=== PATIENT | male | born 1960 | race Caucasian/White ===

== ENCOUNTER 2019-09-06 03:58 | Emergency (ER) | payer OTHER ==
[~2019-09-06] VITALS: Ht 188 cm; Wt 90.7 kg
[~2019-09-06 03:58] MED LIST: ABILIFY20 MG PO; ACTOS 45 MG45 M1 PO; ACTOS 45 MG45 M2 PO; AVANDIA8 MG PO; COLACE100 MG; DILANTIN100 MG PO; GEODON PO; GEODON20 MG PO; GEODON40 MG PO; GEODON80 MG PO; GUIATUSS100 MG/5 M; IBUPROFEN 800800 M1 PO; JANUVIA100 MG PO; JANUVIA50 MG PO; KEPPRA 500 MG500 M1 PO; METFORMIN 500500 MG PO; MI-ACID80 MG; MOM; MULTIVITAMINS1 EAC7 PO; NORCO 5-325 TA1 EACH PO; PENICILLIN V P500 MG PO; PEPTO-BISM262 MG/15; PEROXICAM PO; SUDAFED 12 HOU120 MG; TRAMADOL 50 MG50 MG PO; TUMS PO; ULTRAM 50MG TAB50 MG PO; VIAGRA50 MG PO; ZETIA10 MG PO
[2019-09-06] MEDS ORDERED: GLIPIZIDE 10 MG10 MG PO (04:16)
[2019-09-06 04:26] LABS: ABSOLUTE NEUTROPHILS 4.1 thou/uL (1.4-8.2); BASOPHILS 0.4 % (0.0-2.0); HEMATOCRIT 37.3 % (42.0-52.0); HEMOGLOBIN 12.6 gm/dL (14.0-18.0); LYMPHOCYTES 14.6 % (24.0-44.0); MCH 31.7 pg (26.0-34.0); MCHC 33.8 g/dL (28.0-37.0); MCV 93.9 fL (80.0-100.0); MONOCYTES 10.5 % (1.0-8.0); PLATELET COUNT 233 thou/uL (150-400); POLYS 74.5 % (36.0-66.0); RBC 3.97 mil/uL (4.50-6.00); RDW 13.4 % (10.5-14.5); WBC 5.5 thou/uL (4.0-11.0)
[2019-09-06 04:33] LABS: ANION GAP 11 mmol/L (7-16); BUN 20 mg/dL (7-18); CALCIUM 9.2 mg/dL (8.5-10.1); CHLORIDE 102 mmol/L (98-107); CO2 24 mmol/L (21-32); CREATININE 0.9 mg/dL (0.7-1.3); GLUCOSE 162 mg/dL (74-106); POTASSIUM 3.4 mmol/L (3.5-5.1); SODIUM 137 mmol/L (136-145)
[2019-09-06 04:41] LABS: TROPONIN-I <0.06 ng/mL (<0.06)
[2019-09-06 04:55] LABS: AMP/METHAMP Negative (Negative); BARBITURATES Negative (Negative); BENZODIAZEPINES Negative (Negative); COCAINE Negative (Negative); METHADONE Negative (Negative); OPIATES Negative (Negative); PCP Negative (Negative)
[2019-09-06 08:16] VITALS: BP 146/75
--- NOTE | 2019-09-07 07:54 | EKG ---
[place] [address] [facility] [place] [address] ELECTROCARDIOGRAM REPORT Name: ANT RACIEL Room #: DEP [facility]#: [id number] Admission: 09/06/19 Attend Phys: Discharge: 09/06/19 Date of : 58 Report #: [id number] THIS REPORT FOR: //name// [facility] ED Test Date: 2019-09-06 Test Time: 04:12:08 Pat Name: ANT JASSO Department: Room: Gender: Automatic Transmission Mechanic: BRENDA : 1960 Requested By: Elva Mathur Order Number: [id number] MD: Can Castro Measurements Intervals Belt Rate: 91 P: 45 DE: 190 QRS: 29 QRSD: 78 T: 57 QT: 439 QTc: 541 Interpretive Statements Sinus rhythm Nonspecific ST and T wave abnormality Compared to ECG 02/24/2014 12:05:23 Nons[address] change in the ST and T-wave segments Electronically Signed On 09-07-2019 7:54:21 ASSEMBLER WATCH TRAIN by Can Castro [email or web address] <ELECTRONICALLY SIGNED> By: Can Castro MD, [facility] 09/07/19 0754 0412 041 Can Castro MD, [facility] /EPI
[2019-09-07] MEDS ORDERED: COLACE100 MG PO (19:45)
[2019-09-07] MEDS ORDERED: IBUPROFEN 800800 M1 PO (19:45)
== END 2019-09-06 08:42 | disposition home or self-care (01) ==
LOC: ER 03:58
PROVIDERS: Emergency Medicine
DX: F29 Unspecified psychosis not due to a substance or known physiological condition (principal); R07.9 Chest pain, unspecified; E11.9 Type 2 diabetes mellitus without complications; M19.90 Unspecified osteoarthritis, unspecified site; F31.9 Bipolar disorder, unspecified; Z87.891 Personal history of nicotine dependence; Z88.8 Allergy status to other drugs, medicaments and biological substances

== ENCOUNTER 2019-09-07 16:10 | Inpatient (IN) | payer OTHER ==
[~2019-09-07] VITALS: Ht 188 cm; Wt 84.4 kg
[~2019-09-07 16:10] MED LIST changes: +GLIPIZIDE 10 MG10 MG PO
[2019-09-07 16:11] VITALS: BP 131/61
[2019-09-07 17:01] LABS: HEMOGLOBIN 12.4 gm/dL (14.0-18.0); MCH 31.6 pg (26.0-34.0); MCHC 33.5 g/dL (28.0-37.0); MCV 94.2 fL (80.0-100.0); PLATELET COUNT 210 thou/uL (150-400); RBC 3.93 mil/uL (4.50-6.00); RDW 13.1 % (10.5-14.5); WBC 13.6 thou/uL (4.0-11.0)
[2019-09-07 17:06] LABS: CALCIUM 9.5 mg/dL (8.5-10.1); CREATININE 1.3 mg/dL (0.7-1.3); POTASSIUM 3.4 mmol/L (3.5-5.1)
[2019-09-07 17:12] LABS: ALBUMIN 3.8 g/dL (3.4-5.0); TOTAL BILIRUBIN 1.2 mg/dL (<0.1-1.0); TOTAL PROTEIN 7.3 g/dL (6.4-8.2)
[2019-09-07 17:47] LABS: ABSOLUTE NEUTROPHILS 10.1 thou/uL (1.4-8.2)
[2019-09-07 18:42] LABS: URINE BILIRUBIN NEGATIVE (Negative); URINE BLOOD 1+ (Negative); URINE CLARITY CLEAR; URINE COLOR YELLOW; URINE GLUCOSE-RANDOM* TRACE (Negative); URINE KETONES 1+ (Negative); URINE LEUKOCYTES-REFLEX NEGATIVE (Negative); URINE NITRITE-REFLEX NEGATIVE (Negative); URINE PROTEIN (DIPSTICK) NEGATIVE (Negative); URINE UROBILINOGEN 0.2 E.U./dl (0.2-1.0)
[2019-09-07 18:50] LABS: BACTERIA-REFLEX None Seen /HPF (None Seen); CASTS None Seen /LPF (None Seen); CRYSTALS None Seen /LPF (None Seen); MUCUS None Seen strn/LPF (None Seen); SQUAMOUS 0-3 Few /LPF (0-3); URINE RBC 0-2 Rare /HPF (0-2); URINE WBC-REFLEX None Seen /HPF (0-5)
[2019-09-07] MEDS ORDERED: COLACE100 MG PO (19:45)
[2019-09-07] MEDS ORDERED: IBUPROFEN 800800 M1 PO (19:45)
[2019-09-07 21:29] VITALS: BP 130/65
[2019-09-07 21:52] VITALS: BP 130/65
[2019-09-07 22:28] VITALS: BP 135/61
--- NOTE | 2019-09-08 03:04 | NUR ---
PATIENT ARRIVED FROM ED AT APPROX. 2230. PATIENT IS BEING ADMITTED FOR SIEZURE ACTIVITY EARLIER TODAY. 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 PATIENT IS ALERT AND ORIENTED TO HIMSELF AND TIME. PATIENT SEEMS CONFUSED TO WHERE HE IS AND WHY HE IS HERE. PATIENT SPEAKS IN SHORT SENTENCES AND SEEMS TO SLUR HIS WORDS. VITAL SIGNS APPEAR STABLE. ASSESSMENT IS CHARTED WITH ASSIST FROM LUIS Ho RN. PATIENTS PM MEDS ARE BEING STARTED IN AM A PRECAUTION BECAUSE OF HIS SIEZURE ACTIVITY EARLIER TODAY. PATIENT USED URINAL X1 THIS SHIFT BUT GOT OUT OF BED LATER BECAUSE HE HAD TO USE THE TOILET. PATIENT PULLED HIS IV IN WRIST OUT AND THIS NURSE STARTED A NEW 22G SL IV ON HIS R FOREARM. PATIENT IS VOICING PARANOID THOUGHTS. PATIENT WAS REASURRED WE WILL MONITOR HIM TONIGHT. GRADY Hoover NP EXAMINED HIM AND WE WILL PROCEED W PLAN OF CARE. FALL PRECAUTIONS IN PLACE. PATIENT IS PLACED CLOSE TO NURSES STATION, BED ALARM IS ON. NO SIEZURE ACTIVITY OCCURED. WILL CONTINUE TO MONITOR AND FOLLOW POC
--- NOTE | 2019-09-08 08:20 | NUR ---
SPOKE TO INTERIOR ASSEMBLIES DEVELOPER PROVER JAYE AT 0820 AND HE STATES "HE SHOULD BE ON 60MG OF GEODON AT MOST" AND STATES "HE HAS BEEN TAKING MEDICATION FOR ERECTILE DYSFUNCTION"; BRAND UNKNOWN. INTERIOR ASSEMBLIES DEVELOPER PROVER ALSO STATED RECENT DISORIENTATION. WILL REQUEST A PSYCH CONSULT
[2019-09-08 09:09] LABS: HEMATOCRIT 34.8 % (42.0-52.0); HEMOGLOBIN 12.1 gm/dL (14.0-18.0); MCH 32.5 pg (26.0-34.0); MCHC 34.7 g/dL (28.0-37.0); MCV 93.6 fL (80.0-100.0); PLATELET COUNT 181 thou/uL (150-400); RBC 3.72 mil/uL (4.50-6.00); RDW 12.9 % (10.5-14.5); WBC 10.2 thou/uL (4.0-11.0)
[2019-09-08 09:17] LABS: CALCIUM 8.8 mg/dL (8.5-10.1); CREATININE 0.8 mg/dL (0.7-1.3); POTASSIUM 3.2 mmol/L (3.5-5.1)
[2019-09-08 10:33] LABS: ABSOLUTE NEUTROPHILS 8.4 thou/uL (1.4-8.2); PLATELET ESTIMATE NORMAL
[2019-09-08 14:20] VITALS: BP 143/62
--- NOTE | 2019-09-08 16:03 | NUR ---
PT ADMITTED RELATED TO RECURRENT SIZURE ACTIVITY. CM REVIEWED CHART AND SPOKE WITH CARE TEAM. CM ATTEMPTED TO VISIT WITH PT AT BEDSIDE THIS DAY BUT PT WAS SLEEPING AND DIDM'T ROUSE. CM CALLED JAYE MATIAS WHO IS LISTED PT'S GUARDIAN IN OUR SYSTEM, HE ISN'T HE IS PT'S REDISCOVER ABLE SEAMAN . HE INDICATED THAT PT RESIDES IN AN INDEPENDENT APARTMENT AT [facility]. 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 HE INDICATED THAT PT HADN'T USED ANY DME. JAYE FLORENCIO INDICATED THAT PT'S MOM LIVES IN [place] AND THAT HE COMMUNICATES WITH HER REGARDING PT REGULARLY. HE INDICATED HE PLANS THAT PT WILL WANT TO RETURN HOME ONCE MEDICALLY STABLE. CM TO FOLLOW INDICATED WITH DC PLANNING.
--- NOTE | 2019-09-08 16:08 | NUR ---
CONSULT [phone] COMPLETED BY THIS DICTAPHONE TECHNICIAN. PATIENT WAS RECEIVING WHAT APPEARED TO BE "EEG" TEST ON FIRST ATTEMTED VISIT. THIS DICTAPHONE TECHNICIAN WAS ABLE TO VISIT WITH THE PATIENT ON THE SECOND VISIT. PATIENT HAD A VERY FLAT AFFECT AND HIS RESPONSES SEEMED DELAYED. BASIC LIFE REVIEW WAS ATTEMPTED. PATIENT WAS ABLE TO SHARE THAT HE ATTENDED A TEMPLE RASTAFARIAN WHEN HE WAS LITTLE, BUT DID NOT PROFESS THAT TO BE HIS CURRENT AL. PATIENT SEEMED UNCERTAIN ABOUT FAMILY BUT STATED THEY WERE AT"COMMON GROUND". WE CONCLUDED IN PRAYER. THIS DICTAPHONE TECHNICIAN SPOKE TO THE PATIENT'S NURSE TO SEE IF SHE HAD NOTICED ANY VISITORS OR IF SHE WAS AWARE OF ANY FAMILY CONTACTS. SHE INDICATED SHE THOUGHT SIENNA WAS A CAREGIVER.
--- NOTE | 2019-09-08 19:23 | NUR ---
RECEIVED PT'S CARE AROUND 0710; PT. ON BED; DURING ASSESSMENT ALERT TO PERSON & PLACE; C/O BACK PAIN; REFUSED PRN PAIN MEDICATION; AM MEDICATIONS GIVEN; CALM; COOPERATIVE; SEIZURE PRECAUTIONS ON PLACE; EDUCATED ABOUT FALL PRECAUTIONS; CALL BEFORE STANDING FROM BED; ST. UNDERSTANDING; INSULIN NOT REPLACED DUE TO SLEEPING; NOT ABLE TO MANTAIN EYES OPEN FOR LONG TO EAT; EAT BREAKFAST & DINNER 100%; ABLE TO AMBULATE TO RESTHROOM WITH ONE PERSON ASSISSTANCE & GAIT PARKS; ASSESSMENT CHARGED; FOLLOWING POC; PASSED ON REPORT;
[2019-09-08 19:30] VITALS: BP 144/68
--- NOTE | 2019-09-09 05:33 | NUR ---
PATIENT ALERT AND ORIENTED TO PERSON AND PLACE ONLY. CONFUSED AND FORGETFUL. ASKS THE SAME QUESTIONS OVER AND OVER. PATIENT ANXIOUS AND PARANOID. THOUGHT WE WERE GIVING HIM TOO MUCH POTASSIUM AND WE DID NOT HAVE HIS CORRECT CLIFF ON THE WHITE BOARD. WORRIED ABOUT HIS OTHER MEDS. DENIES PAIN. SLEPT OFF AND ON DURING THE NIGHT.
[2019-09-09 07:32] VITALS: BP 146/69
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
--- NOTE | 2019-09-09 14:01 | NUR ---
CM VISITED WITH PT THIS AM AND HE INDICATED THAT HE HAD A NUMBER OF ITEMS HE WANTED SECURITY TO COLLECT FOR SAFE KEEPING. CM NOTIFIED SECURITY AND THEY COLLECTED KEYS, WALLET, AND SOME MACE. CM FOLLOWED UP WITH PT'S SPRINKLING SYSTEM IRRIGATOR JAYE MATIAS HE HAD VISITED PT THIS AM. HE INDICATED THAT PT ISN'T AT HIS BASELINE COGNITIVELY. PT ASSESSED AND THEY INDICATED THAT ONGOING ASSESSMENT IS NEEDED. WE ARE AWAITING DR. LIZ TO ASSESS WELL. CM TO FOLLOW INDICATED WITH DC PLANNING.
--- NOTE | 2019-09-09 14:17 | NUR ---
THIS CULINARY ARTS INSTRUCTOR OBSERVED A SIGNIFICANT INCREASE IN HIS LEVEL OF COMMUICATION AND MUCH MORE COHERENT. HE WOULD "DRIFT OFF" OCCASIONALLY HE SPOKE, BUT WITH A LITTLE VERBAL PROMPTING HE WOULD REGAIN HIS THOUGHT PATTERN. WE DISCUSSED HIM GROWING UP IN A PRESYBETERIAN HOME. HE LOOKED AT ME AND ASKED ME "ARE YOU A PRESYBETERIAN?" HE WENT ON TO EXPLAIN THAT HE IS NOW "REGULAR VOODOO". HE SAID THAT IF HIS GIRLFRIEND WOULD CHANGE HER DENOMINATON, HE WOULD HER. i ASKED HIM ABOUT HIS RINGS. HE GOT A LITTLE "TOUNGE TWISTED" BUT EXPLAINED THAT "THEY ARE WEDDING BANDS THAT HE PURCHASED IN THE [facility]. HE ASKED IF I WOUD PRAY FOR HIM. I ASKED IF THERE WAS ANYTHING IN PARTICLUAR. HE WENT AHEAD AND STARTED PRAYING A PRETTY MUCH APPROPRIATE PRAYER. I CONCLUDED . HE SHOOK MY HAND AND THANKED ME FOR VISITING HIM.
[2019-09-09 14:34] LABS: TSH 0.984 uIU/mL (0.358-3.740)
[2019-09-09 15:10] VITALS: BP 134/60
[2019-09-09 19:22] VITALS: BP 160/82
--- NOTE | 2019-09-10 03:10 | NUR ---
PT CARE ASSUMED WITH PT IN BED.PT REFUSED TO TAKE BEDTIME MEDICATION.PT BECAME AGITATED DURING THE NIGHT AND HIGHWAY COMMISSIONER MUNIRA INFORMED AND ORDERED GEODON IM ONETIME .MEDICATION ADMINISTERED AND PATIENT WENT BACK TO BED AND CHOOSE TO TAKE OFF CLOTHES AND BEDDINGS.PT WAS CLOSELY OBSERVED BY STAFF THROUGHOUT SHIFT.PT HAS MRI TO BE DONE ON SATURDAY A ORDERED.CONTINUE POC TILL EOS
[2019-09-10 05:18] LABS: HEMATOCRIT 40.1 % (42.0-52.0); HEMOGLOBIN 13.6 gm/dL (14.0-18.0); MCHC 33.9 g/dL (28.0-37.0); MCV 94.2 fL (80.0-100.0); RBC 4.26 mil/uL (4.50-6.00); RDW 13.1 % (10.5-14.5); WBC 8.4 thou/uL (4.0-11.0)
[2019-09-10 05:33] LABS: CALCIUM 9.3 mg/dL (8.5-10.1); CREATININE 0.8 mg/dL (0.7-1.3); MAGNESIUM 1.9 mg/dL (1.8-2.4); POTASSIUM 3.7 mmol/L (3.5-5.1)
[2019-09-10 07:17] VITALS: BP 162/62
--- NOTE | 2019-09-10 10:23 | NUR ---
PT ORIENTED TO SELF, VISUAL HALLUCINATIONS PRESENT. PATIENT IMPULSIVE, STANDING OUT OF BED SHOUTING. PATIENT REDIRECTED WITH HELP OF SECURITY TEAM. DOCTOR AWARE AND ORDERS GIVEN. PATIENT DID TAKE ALL MEDIATION AND ALLOW A.M. BLOOD SUGAR CHECK. PATIENT HAS POOR APPETITE. NO SIGNS OF DISTRESS. WILL CONTINUE TO MONITOR.
--- NOTE | 2019-09-10 14:37 | NUR ---
RESPONDED TO PT ROOM FOR PT BEING AGITATED,TRYING TO GET OUT OF BED. NOT FOLLOWING ANY VERBAL COMMANDS FROM PRIMARY NURSE. PT'S GAIT IS UNSTABLE. PT WELL KNOWN TO STAFF SINCE ADMISSION FOR IMPULSIVE BEHAVIOR. ATTEMPTED TO CALM PT DOWN TO MAINTAIN PT'S SAFETY. PER PRIMARY NURSE, PSYCHIATRY ALREADY PAGED FOR PHARMACEUTICAL MANAGEMENT WHICH WAS UNSUCCESSFUL. FOR ABOUT 30MINS PT IS UNABLE TO SIT DOWN OR MAINTAIN SAFE POSITION WITH THE RN AND ANOTHER STAFF IN ROOM. CALLED AND REPORTED FINDINGS. NEW ORDER FOR NON-VIOLENT SOFT RESTRAINTS RECEIVED. DEVELOPMENT ASSISTANT VICTOR M AT BEDSIDE FOR 2ND TIER REVIEW. WITH THE HELP OF PUBLIC SAFETY, PT WAS PLCAED IN BED AND RESTRAINTS WERE APPLIED. PT USED URINAL RIGHT BEFORE RESTRAINTS. THERE'S NO FAMILY AVAILABLE TO REPORT RESTRAINTS AT THIS TIME. WILL CONT TO MONITOR FOR ANY CHANGES IN PT'S MENTATION.
[2019-09-10 15:17] VITALS: BP 131/87
[2019-09-10 15:53] VITALS: BP 122/47
[2019-09-10 20:35] VITALS: BP 143/63
--- NOTE | 2019-09-11 02:27 | NUR ---
CARE ASSUMED AT 1900, PATIENT WAS ANXIOUS YELLING AND TALKING TO UNSEEN OTHERS. PATIENT ON RESTRAINS THIS SHIFT. PRN SEROQUEL GIVEN PER DR. MCRAE. PATIENT DENIED PAIN OR DISCOMFORT. PATIENT ENCOURAGED FLUIDS. PATIENT CALM AND COOPEREATIVE WITH MEDS AND CARE. PATIENT HAS NO SEIZURES THIS SHIFT. PATIENT IN BED ASLEEP AT THIS TIME BREATHING REGULAR AND UNLABOURED.
[2019-09-11 04:15] LABS: CALCIUM 9.2 mg/dL (8.5-10.1)
[2019-09-11 04:21] LABS: HEMATOCRIT 38.7 % (42.0-52.0); HEMOGLOBIN 13.2 gm/dL (14.0-18.0); MCH 32.2 pg (26.0-34.0); MCV 94.5 fL (80.0-100.0); RBC 4.1 mil/uL (4.50-6.00); RDW 13.3 % (10.5-14.5); WBC 6.8 thou/uL (4.0-11.0)
[2019-09-11 07:17] VITALS: BP 142/68
--- NOTE | 2019-09-11 10:42 | NUR ---
SW reviewed chart and spoke with nursing. Pt was in restraints due to agitation and confusion. Pt is currently out of restraints. Psych consulted and is following. Hoping pt will clear and be able to return home when medically stable. SW is following to assist as needed with discharge planning.
[2019-09-11 15:02] VITALS: BP 148/78
--- NOTE | 2019-09-11 16:58 | NUR ---
Assumed pt care this am, vs stable. Pt was in restraints this am, periods of rest given and monitored. Pt hs been pleasant and would follow commands and call appropriarely. Pt has a shower and was able to care for himself in the toilet. Seizure precautions used through out hte shift, frequent visits done through out the day. Pt still has deluions, oriented to self only. Some medications have been refused and his lunch meal as well. No seizures have been noted as of this writing. Psych eval done and pt has been accepted in [address] [place] [address] room 521 bed A, informed Dr. Childers, awaiting visit of Dr. Cifuentes prior to transfer is deemed necessary. POC followed, no signs or verbalizations of distress have been noted.
[2019-09-11 20:14] VITALS: BP 141/69
--- NOTE | 2019-09-12 04:20 | NUR ---
ASSUMED CARE AROUND 191. AXOX2. IMPULSIVE AND CONFUSED. PLACED CLOSE TO NURSING STATION AND FREQEUNT VISUAL CHECKS RENDERED. PER DAY RN PT WAS SUPPOSED TO D/C 5S. CALLED SENIOR RECRUITER GLASS VIAL FILLER, NO D/C TONIGHT. WILL REPORT TO DAY RN FOR F/U. NO S/S ACUTE DISTRESS NOTED OR REPORTED AT THIS TIME. WILL CONT TO MONITOR FOR ANY CHANGES IN CONDITION.
[2019-09-12 04:49] LABS: HEMATOCRIT 40.1 % (42.0-52.0); HEMOGLOBIN 13.7 gm/dL (14.0-18.0); MCV 94.1 fL (80.0-100.0); RBC 4.27 mil/uL (4.50-6.00); RDW 13.3 % (10.5-14.5); WBC 6.3 thou/uL (4.0-11.0)
[2019-09-12 04:51] LABS: CALCIUM 9.3 mg/dL (8.5-10.1); CREATININE 0.9 mg/dL (0.7-1.3); MAGNESIUM 1.9 mg/dL (1.8-2.4); POTASSIUM 3.8 mmol/L (3.5-5.1)
[2019-09-12 07:30] VITALS: BP 140/75
[2019-09-12] MEDS ORDERED: KEPPRA 500 MG500 M1 PO (08:19)
[2019-09-12] MEDS ORDERED: SEROQUEL 50 MG50 MG PO (08:20)
[2019-09-12] MEDS ORDERED: ZIPRASIDONE HCL20 M1 PO (08:20)
--- NOTE | 2019-09-12 09:30 | NUR ---
PT ASSESSED AT START OF SHIFT. VERY RESTLESS UNABLE TO STAY SITTING FOR LONG. GAIT IS OCC UNSTEADY. POOR APPETITE. TALKS INCESSANTLY. COOPERATIVE AND POLITE. NO SEIZURE ACTIVITY SINCE ADMISSION. PT REFUSED HIS KEPPRA THIS AM SAYING HE WAS ALLERGIC. DISCHARGE TO [address] [place] [address] PER W/C. BELONGINGS IN SECURITY LOCKED UP FOR TIME OF DISCHARGE.
[2019-09-12] MEDS ORDERED: GEODON60 MG PO (11:07)
[2019-09-12] MEDS ORDERED: SEROQUEL 25 MG25 MG PO (11:08)
[2019-09-12] MEDS ORDERED: ACTOS 45 MG45 M1 PO (11:09)
[2019-09-12] MEDS ORDERED: KEPPRA XR500 MG PO (11:10)
[2019-09-12] MEDS ORDERED: GLIPIZIDE 10 MG10 MG PO (11:11)
[2019-09-12] MEDS ORDERED: HUMALOG100 UNIT/1 SUBQ (11:12)
[2019-09-12] MEDS ORDERED: IBUPROFEN 800800 M1 PO (11:13)
--- NOTE | 2019-09-18 13:29 | HC ---
[facility] [place] [address] CONSULTATION Name: ANT JASSO Room #: 452-P [facility] IN M.R.#: [id number] Admission: 09/07/19 Attend Phys: Massimo Huertas MD Discharge: 09/12/19 Date of : 58 Report #: [id number] THIS REPORT FOR: //name// CC: Massimo Holley DATE OF SERVICE: 09/08/2019 HISTORY OF PRESENT ILLNESS: This is a 58-year-old male patient who is unable to provide any good history. I talked to the Emergency Room physician who took care of this patient last night. There is nobody who can supplement his history. The history I can tell that this patient had two episodes of seizures. He did have some tongue biting with it. He is taking some supplement and I am not sure what it is and what the side effects of this supplement is. It looks like he used to be on Keppra at one time the best I understand, but sometime along the line, he stopped taking Keppra. He is allergic to whole lot of medications. REVIEW OF SYSTEMS: A 14-point review of system was attempted, both from the patient as well as from the records. Very limited history is available what his baseline is. It would appear that he has been confused. That is all the history I can tell. I asked him everything about 14 point, but the answers I got were not very definite. He does have a history of bipolar disorder, diabetes mellitus, osteoarthritis, psychosis. He is on multiple psychiatric medications. It is not known if his blood sugar was checked. He is pretty irritable and he was irritable in the Emergency Room also, so I could not get a full 14-point review of system, but I tried. PAST MEDICAL HISTORY: Positive for seizure, but he does not give any further details on that. FAMILY HISTORY: Negative for seizures. SOCIAL HISTORY: He said he used to smoke, but does not drink alcohol. PHYSICAL EXAMINATION: Difficult because it is difficult to understand his speech. He said he does not know what month it is, what hospital he is in, but I am not sure how much he is trying. I tried to do the cranial nerve examination and neuromuscular examination. He did not cooperate with either one of them. I do not think there is any focality there, but I can tell for sure. He did not cooperate with the cerebellar sign or fundus. His cardiac examinations appear unremarkable. He does not have any respiratory difficulty or rhonchi on either side. His blood pressure is 135/61, respirations 19, pulse is 94. His temperature is 100. LABORATORY DATA: His white count was up when he came in at 13.6, but is 10.[address] [address] CONSULTATION Name: ANT JASSO Room #: 452-P [facility] IN M.R.#: [id number] Admission: 09/07/19 Attend Phys: Massimo Huertas MD Discharge: 09/12/19 Date of : 58 Report #: [id number] now. He did have a CT scan of the head during admission and that does not appear to be showing any acute abnormality. His records indicate that he did have an MRI done in 2013 and that was unremarkable. IMPRESSION: Seizure. I am not certain it is a new onset seizure. I do not know whether there is any prior history or not, but he was not on any anticonvulsant and now he started having seizure. Because of that, it will be desirable to do an MRI to make sure there is no etiology there. We will get an EEG done. I will leave him on Keppra indefinitely because of the poor history. I discussed all of it with the patient, but I do not think this patient understands that much and he is not very cooperative at all. Thank you very much for this referral. <ELECTRONICALLY SIGNED> By: Regino Mari MD 09/18/19 1329 1210 1424 Regino Mari MD /nt
--- NOTE | 2019-09-18 13:30 | EEG ---
[facility] [place] [address] ELECTROENCEPHALOGRAM Name: ANT JASSO Room #: 452-P [facility] IN M.R.#: [id number] Admission: 09/07/19 Attend Phys: Massimo Huertas MD Discharge: 09/12/19 Date of : 58 Report #: [id number] THIS REPORT FOR: //name// CC: Massimo Holley DATE OF SERVICE: 09/08/2019 This patient is being evaluated for the possibility of seizure. EEG was done by placing the electrodes by standard 10-20 system of electrode placement. Both referential and sequential montages were used for recording. Background activity in this patient's EEG is about 7 Hz and 30 microvolt. The patient goes to sleep and that is associated with bilateral slowing and vertex sharp waves. Photic stimulation is unremarkable. No active epileptiform activity was noticed during this record. IMPRESSION: This is an abnormal EEG because it is disorganized and slow on both sides. That is a nonspecific abnormality, which can occur with dementia, effect of psychotropic medications, encephalopathy, etc. Clinical correlation is recommended. <ELECTRONICALLY SIGNED> By: Regino Mari MD 09/18/19 1330 1725 181 Regino Mari MD /nt
== END 2019-09-12 10:06 | DRG 101 ==
LOC: ER 16:10 → 4W 20:34 → EROBS 20:34 → 4W 21:52
PROVIDERS: Emergency Medicine; Internal Medicine; Psychiatry & Neurology Neuromuscular Medicine; ADMIT Hospitalist
DX: G40.909 Epilepsy, unspecified, not intractable, without status epilepticus (principal); E87.6 Hypokalemia; E11.9 Type 2 diabetes mellitus without complications; F31.9 Bipolar disorder, unspecified; M19.90 Unspecified osteoarthritis, unspecified site; D72.829 Elevated white blood cell count, unspecified; Z60.2 Problems related to living alone; Z88.8 Allergy status to other drugs, medicaments and biological substances; Z87.891 Personal history of nicotine dependence; Z79.899 Other long term (current) drug therapy
CPT/HCPCS: 10040; 10045

== ENCOUNTER 2019-09-11 16:46 | Inpatient (IN) | payer OTHER ==
[~2019-09-11] VITALS: Ht 177.8 cm; Wt 78.0 kg
[~2019-09-11 16:46] MED LIST changes: +COLACE100 MG PO
[2019-09-12] MEDS ORDERED: KEPPRA 500 MG500 M1 PO (08:19)
[2019-09-12] MEDS ORDERED: SEROQUEL 50 MG50 MG PO (08:20)
[2019-09-12] MEDS ORDERED: ZIPRASIDONE HCL20 M1 PO (08:20)
[2019-09-12 10:35] VITALS: BP 148/82
[2019-09-12] MEDS ORDERED: GEODON60 MG PO (11:07)
[2019-09-12] MEDS ORDERED: SEROQUEL 25 MG25 MG PO (11:08)
[2019-09-12] MEDS ORDERED: ACTOS 45 MG45 M1 PO (11:09)
[2019-09-12] MEDS ORDERED: KEPPRA XR500 MG PO (11:10)
[2019-09-12] MEDS ORDERED: GLIPIZIDE 10 MG10 MG PO (11:11)
[2019-09-12] MEDS ORDERED: HUMALOG100 UNIT/1 SUBQ (11:12)
[2019-09-12] MEDS ORDERED: IBUPROFEN 800800 M1 PO (11:13)
[2019-09-12 11:18] VITALS: BP 148/82
[2019-09-12 11:35] VITALS: BP 132/78; BP 138/78
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
--- NOTE | 2019-09-12 14:28 | NUR ---
Sw completed chart review and established that pt lives independently and has CM services with [facility] [phone] oconnor
[2019-09-12 20:04] VITALS: BP 132/95
--- NOTE | 2019-09-13 03:58 | NUR ---
ASSUMED CARE AT APROXIMATELY 19:15 ON 09/12/19, IN ROOM DRESSES AND UNDRESSES REPEATEDLY, BRUSHES TEETH AND CLEANS COMB REPEATEDLY. REPORTS THAT ANTISEIZURE MEDS MAKE HIM HAVE HALLUCINATIONS, REPORTS THAT JAMES GIVES HIM HALLUCINATIONS. REQUESTS IBUPROPHEN FOR BACK PAIN. WHEN PROVIDED, HE SAYS, WHERE IS MY LIQUID IBUPROPHEN? DENIES THAT HAS HAD A BM TODAY, HAS POSITIVE ABD SOUNDS. REPORTS THAT WISHES TO TAKE X3 GEL CAPS FOR CONSTIPATION. IS HAVING VISUAL HALLUCINATIONS AND AUDITORY HALLUCINATIONS, IS HAVING DELUSIONS THAT ROBOTS ARE ALL OVER HIM. HAS A RECURRING DELUSION THAT HE IS HAVING ROBOTIC SURGERY IN THE A.M. HOWEVER NO SURGERY IS SCHEDULED. SEROQUEL 50 MG PO PROVIDED @ 23:30, WAS ASLEEP BY 23:59. WILL CONTINUE TO MONITOR Q 12 MINUTES FOR PATIENT SAFETY. BED IN LOW POSITION, BED ALARM SET.
--- NOTE | 2019-09-13 06:00 | NUR ---
SLEPT 5.2 HOURS OVERNIGHT.
--- NOTE | 2019-09-13 06:28 | NUR ---
@ 2100 PATIENT REPORTED THAT HE HAD NOT HAD A BM ON 09/12, AND COULD NOT REMEMBER WHEN HE HAD LAST HAD A BM. WHEN OFFERED MOM, HE REFUSED IT. @ 0600 HE ASKED FOR MOM, AND SEEING THAT HE HAD A SIMILAR MEDICATION DUE @ 0900, PROVIDED EDUCATION THAT MEDICINES NEED TO BE TAKEN WHEN OFFERED. @ 0515, EXHIBITED AGITATION, COMPULSIONS, AND OBSESSIONS WELL AUDIO HALLUCINATIONS. OFFERED SEROQUEL 50MG WHICH HE REFUSED, MAKING CONFUSED EXPLAINATIONS REGARDING IRON, AND POTASSIUM LEVELS. ALSO STATED THAT IT IS HIS CIVIC RIGHT TO REFUSE ANY MEDICATIONS THAT HE DOES NOT WANT TO TAKE.
[2019-09-13 09:17] VITALS: BP 138/77
[2019-09-13 09:46] LABS: HEMATOCRIT 39.5 % (42.0-52.0); HEMOGLOBIN 13.4 gm/dL (14.0-18.0); MCH 31.9 pg (26.0-34.0); MCHC 33.8 g/dL (28.0-37.0); MCV 94.2 fL (80.0-100.0); RBC 4.19 mil/uL (4.50-6.00); RDW 13.1 % (10.5-14.5); WBC 7.1 thou/uL (4.0-11.0)
[2019-09-13 09:53] LABS: CALCIUM 9.7 mg/dL (8.5-10.1); CREATININE 1.2 mg/dL (0.7-1.3); MAGNESIUM 1.8 mg/dL (1.8-2.4); POTASSIUM 3.8 mmol/L (3.5-5.1)
--- NOTE | 2019-09-13 16:40 | NUR ---
Has been up and about often today, he continues to mumble and becomes disruptive to his peers, he gets argumenatitive about meds, and states he is allergic, to everything he is given, he is noted to have taken several showers today and has been found in his room naked, he is redirectable, alert and delusional today. Continue to monitor for behaviors and safety.
[2019-09-13 20:20] VITALS: BP 127/66
[2019-09-13 22:49] VITALS: BP 127/66
--- NOTE | 2019-09-14 03:43 | NUR ---
PT OUT IN DAYROOM AT START OF SHIFT. WANDERING THE HALLS. PT HAS SPENT MOST OF THE NIGHT IN ROOM TALKING TO HIMSELF, REPEATING SEMPER FI AND SALUTING EACH TIME ROUNDS ARE MADE BY HIS ROOM. HAS SLEPT LITTLE. GIVE PO SEROQUEL FOR RESTLESSNESS WITH LITTLE POSITIVE RESULTS.
--- NOTE | 2019-09-14 07:00 | NUR ---
Assumed care of patient this am. Patient awake and active. Patient ambulates with out assistance. Patient takes medications whole. Patients affect somewhat tense, confused. Patient rambles and has difficulty staying on topic. Patients assesment shows clear breath sounds, active bowel sounds, and s1 s2 present with auscultation. Patients appearance is neat and clean.
[2019-09-14 07:30] VITALS: BP 146/80
--- NOTE | 2019-09-14 08:13 | EKG ---
[address] [address] ELECTROCARDIOGRAM REPORT Name: ANT JASSO Room #: 52-A ADM IN M.R.#: [id number] Admission: 09/12/19 Attend Phys: Massimo Arias DO Discharge: Date of : 58 Report #: [id number] THIS REPORT FOR: //name// [facility] Test Date: 2019-09-13 Test Time: 15:50:01 Pat Name: ANT JASSO Department: Room: 521A A Gender: M Tourist Agent: MED : 1960 Requested By: Mimi Islas Order Number: [id number] MD: Tank Osorio Measurements Intervals [place] Rate: 83 P: 79 DC: 179 QRS: 50 QRSD: 94 T: 67 QT: 387 QTc: 455 Interpretive Statements Sinus rhythm Compared to ECG 09/06/2019 04:12:08 ST (T wave) deviation no longer present Electronically Signed On 09-14-2019 8:13:01 LOGISTICAL ENGINEER by Tank Osorio [email or web address] <ELECTRONICALLY SIGNED> By: Tank Osorio MD 09/14/1913 49 49 Tank Osorio MD /AMEYA
--- NOTE | 2019-09-14 16:31 | NUR ---
SAVANAH contacted Abbe Hernandez and asked what pt's psych doctor's name at [facility]; his doctor's name is Néstor Engel. He said he plans to visit pt tomorrow on the unit. SAVANAH will continue to follow pt during his stay.
--- NOTE | 2019-09-14 17:44 | NUR ---
ASSUMED CARE AFTER CAITLIN RN LEFT FOR THE DAY. PT. AMBULATING OFF AND ON IN THE HALLWAY. HE CONTINUES TO VERBALIZE IN A WORD SALAD AND OCCASIONALLY WILL MAKE FULL SENTENCES. WHEN ATTEMPTING TO GET HIM TO TAKE HIS 0 MEDICATION, HE STATED HE CANNOT TAKE IT. DR. MOLINA IN THE DINING ROOM AT THE TIME AND INFORMED HIM IT IS HIS GEODON. HE STATED, "I CAN TAKE THAT" AND TO WHICH HE DID TAKE THE MEDICATION. HE CONTINUES TO TALK TO HIMSELF OFTEN. HE WILL "GLARE" AT TIMES TO STAFF, BUT TO AGRESSION OR ACTING OUT BEHAVIORS NOTED.
[2019-09-14 20:09] VITALS: BP 140/63
[2019-09-15 07:54] VITALS: BP 115/70
--- NOTE | 2019-09-15 17:53 | NUR ---
Alert and orientated X4. Appears happy but mood very labile. Disjointed speech, sometimes repeating. Staring in challenging manner at staff/other patients. Occassionally yelling out. Speech revolves around judaism and women. Breath sounds clear t/o. Regular HR auscultated. Color pink with brisk capillary refill and palpable peripheral pulses. Independent with toileting. No BM since 09/11. Active bowel sounds over soft, rounded abdomen. Increasingly restless t/o day with continual talking and unusual displays of behaviour. Going into other patient's rooms, taking sheets off beds. Drank Mg citrate without difficulty. Dosage of geodon 160mg clarified with pharmacist who clarified with Dr. Arias. Per pharmacist, pt. still psychotic with little choice in meds so decision was to increase dosage to total daily dose. Sitting at table eating dinner continually talking to himself. No s/o distress.
[2019-09-15 19:54] VITALS: BP 150/78
[2019-09-15 22:00] VITALS: BP 150/78
--- NOTE | 2019-09-15 22:09 | NUR ---
PATIENT REFUSED TO TAKE HIS HS MEDS FROM THIS NURSE THIS EVENING. HE DID HOWEVER, TAKE THEM FROM ANOTHER NURSE RIZWAN SHEIKH. HE WAS GIVEN HIS MEDS WITH APPLE JUICE BECAUSE HIS HS GLUCOSE WAS 59 AND HE WAS REFUSING ANY SNACKS OR FOOD. ABOUT 3 MINUTES AFTER TAKING HIS MEDS THE PATIENT GOT UP FROM HIS CHAIR IN THE DINING ROOM AND BEGAN GROWLING AND HOWLING AND KARATE CHOP MOTIONING WITH HIS HANDS HE WALKED PAST NURSES STATION. HE WAS UNABLE TO BE REDIRECTED. HE STEPPED INTO BACK BENTLEY AND LOOKED TOWARDS THE EXIT DOORS AND WAS STARING AND GROWLING AND KARATE CHOPPING TOWARDS THEM. WHEN I ASKED WHAT HE WAS SEEING, HE RESPONDED, "ITS A DEMON COMING TOWARDS ME." HE TOLD IT TO LEAVE IN KAREN'S NAME BUT KEPT STARING AT THE DOORS. HE WAS REFUSING TO GO TO HIS ROOM. SECURITY WAS CALLED AND THEY WERE ABLE TO GUIDE HIM BACK TO HIS ROOM. HE KEPT STARING AT THEM AND PUTTING HIS HANDS OUT LIKE HE WAS WAITING FOR THEM TO CUFF HIM. HE SAT AT END OF BED AND GROWLED OFF AND ON. DR MOLINA WAS CALLED AND ORDER GIVEN FOR GEODON 20MG IM ONE TIME. GEODON 20MG IM GIVEN IN LEFT DELTOID. SECURITY HELPED PATIENT TO LAY DOWN IN BED FOR THE NIGHT. PATIENT STARED AT THE CEILING FOR A BIT BEFORE GOING TO SLEEP. PATIENT IS SLEEPING SOUNDLY AT THIS TIME. SIDERAILS X 3 UP AND BED ALARM ON AND BED IN LOW POSITION FOR PATIENT SAFETY D/T SEDATION MEDS. GLUCOSE RECHECKED 30 MINUTES AFTER APPLEJUICE GIVEN WITH MEDS AND WAS 196. DID NOT TREAT WITH INSULIN AT THIS TIME D/T GLUCOSE HAD BEEN 59 BEFORE APPLE JUICE GIVEN. CONTINUING TO MONITOR. PATIENT STATES LAYING DOWN TO GO TO BED THAT HE HAD 3 BOWEL MOVEMENTS IN A ROW. PATIENT HAS HAD 2 SHOWERS TONIGHT BETWEEN 1800 AND 0.
--- NOTE | 2019-09-16 07:13 | NUR ---
PATIENT AWAKE AND ASSISTED TO THE BATHROOM D/T SLIGHTLY GROGGY FROM GEODON INJECTION LAST NIGHT. NO MORE DIARHEA. PATIENT SAT ON TOILET THIS MORNING AND STATES HE FEELS "SO GOOD" THIS MORNING. HE SAID HE DOESN'T REMEMBER ANYTHING FROM LAST NIGHT THAT LEAD UP TO HIS GEODON INJECTION. HE STATES HE NEEDED THE SLEEP AND FEELS MUCH BETTER FOR IT. HE IS SMILING AND VISITING WITH THIS NURSE AND SINGING THE ANTS GO MARCHING ONE BY ONE. PATIENT A/0 X 4 AND APPROPRIATE SO FAR THIS MORNING.
--- NOTE | 2019-09-16 08:35 | EKG ---
[address] [address] ELECTROCARDIOGRAM REPORT Name: ANT JASSO Room #: 52-A ADM IN M.R.#: [id number] Admission: 09/12/19 Attend Phys: Massimo Arias DO Discharge: Date of : 58 Report #: [id number] THIS REPORT FOR: //name// [facility] Test Date: 2019-09-15 Test Time: 16:01:16 Pat Name: ANT JASSO Department: Room: 521A A Gender: M Local Company Hazmat Driver: Karl PRATT : 1960 Requested By: Massimo Arias Order Number: [id number] MD: Tank Osorio Measurements Intervals [place] Rate: 88 P: 75 PA: 175 QRS: 50 QRSD: 98 T: 73 QT: 367 QTc: 444 Interpretive Statements Sinus rhythm Multiple ventricular premature complexes Borderline T wave abnormalities Baseline wander in lead(s) I,III,aVL Compared to ECG 09/13/2019 15:50:01 Electronically Signed On 09-16-2019 8:35:21 WANT AD RECEIVER by Tank Osorio [email or web address] <ELECTRONICALLY SIGNED> By: Tank Osorio MD 09/16/19 0835 1601 1601 Tank Osorio MD /EPI
[2019-09-16 09:08] VITALS: BP 140/63
[2019-09-16 11:08] VITALS: BP 140/63
--- NOTE | 2019-09-16 17:54 | NUR ---
ASSUMED CARE AT 0700 THIS MORNING. PT. UP IN HIS ROOM. HE CAME ONTO THE UNIT. HE TOOK HIS MEDICATIONS WITHOUT PROBLEMS NOTED. HE DID ASK MANY QUESTIONS ABOUT HIS MEDICATIONS., BUT TOOK THEM. HE SPENT MUCH OF HIS TIME IN HIS ROOM BETWEEN MEALS. HE TOOK A SHOWER TODAY. HIS CAR SHAGGER CAME TODAY TO SPEAK WITH THE TALENT CONSULTANT AND THE PATIENT. HE HAS BEEN COOPERATIVE WITH STAFF. HE HAS BEEN NOTED TO BE HALLUCINATING C/O SEEING DEMONS. NO ACTING OUT BEHAVIORS NOTED ON THE UNIT. HE CONTINUES TO MASTERBATE IN HIS ROOM. HE DENIES SI/HI.
[2019-09-16 19:56] VITALS: BP 127/67
--- NOTE | 2019-09-17 05:36 | NUR ---
ASSUMED THIS PT CARE AT 1915. HE WAS UP IN DAYROOM WITH PEERS. MINIMAL EPISODES OF AGITATION THIS EVENING. EASILY REDIRECTED. CONTINUES TO TALK NONSENSE AT THIS TIME. STRIPS THE BEDDING OFF HIS BED AND THROWS IT ON HIS FLOOR. SPENDS TIME SITTING ON SIDE OF HIS BED, TALKING TO SELF. TAKES OFF CLOTHES AND PUTS THEM BACK ON INSIDE OUT. NO C/O. NO APPARENT DISTRESS
[2019-09-17 08:18] VITALS: BP 132/66
[2019-09-17 12:23] VITALS: BP 132/66
--- NOTE | 2019-09-17 12:51 | NUR ---
ASSUMED CARE AT 0700 THIS MORNING. PT. UP, DRESSED, AND ON THE UNIT. PT. INITIALLY REFUSED HIS 0900 MEDICATIONS STATING, "I ONLY TAKE THEM AT NIGHT. MY PERSONAL SAYS I CAN'T TAKE THOSE MEDICATIONS." PRESENTED TO THE PT. WHAT THE MEDICATIONS ARE AND WHY HE NEEDS TO TAKE THEM. HE TOOK ONE ADDITIONAL PILL EACH TIME THIS RN RETURNED TO TALK TO HIM ABOUT THESE. EVENTUALLY HE DID TAKE ALL HIS MEDICATIONS. HE HAS BEEN PLEASANT AND COOPERATIVE ON THE UNIT. HE AT ONE POINT STARTED WASHING DOWN THE KITCHENETTE ON THE UNIT. HE CONTINUES TO SAY HE DOES HALLUCINATE BUT HAS NOT BEEN SPECIFIC HE WAS YESTERDAY JUST THAT "THERE A MEN THERE". NO ACTING OUT BEHAVIORS. HE HAS BEEN POLITE IN TALKING WITH STAFF.
--- NOTE | 2019-09-17 15:11 | NUR ---
SAVANAH received a call from pt's daughter Azul who wanted an update on pt. SW provided that update. She asked if discharge would be soon, and SW responded it could be tomorrow to pt's home, but with coordination with pt's grout machine tender Abbe. Azul said pt goes through this cycle of behavior approx. every 5 years.
[2019-09-17 20:00] VITALS: BP 111/60
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
[2019-09-18 08:49] VITALS: BP 133/68
[2019-09-18 09:57] VITALS: BP 133/68
[2019-09-18 10:02] VITALS: BP 133/68
--- NOTE | 2019-09-18 10:13 | NUR ---
0647 Report received from overnight shift, patient this morning was in the day room washing face and arms in the sink. I told the patient he is to do hygeine in his room not in the day room. Patient ate breakfast and took medication without incidence. Patient was in his room with only a depend on when Dr. arias went to check on patient. Dr. Arias states he will probably discharge patient on Saturday and let outside psychiatrist monitor patient on .
--- NOTE | 2019-09-18 16:33 | NUR ---
SAVANAH received a call from Raulito Vivar who asked for the visiting hours. He said he spoke with the doctor who talked with him about his mom needing hospice care. SAVANAH educated Raulito on hospice house vs in home hospice. SAVANAH asked Raulito if he would like her to provide a listing of hospice. He said [facility] can decide if they want to send her to a hospice house. SAVANAH explained that in home hospice is different and she can have his mom evaluated by hospice before she returns. He said he would rather wait until after the weekend. He said he and other family members are planning to visit pt tomorrow. SW team will continue to follow pt during her stay.
[2019-09-18 20:19] VITALS: BP 144/67
--- NOTE | 2019-09-18 23:29 | NUR ---
Care assumed of patient at 1915: Patient seated in dayroom at start of shift. Patient pacing from bedroom to day room several times. Patient alert and oriented to person and place. Disoriented on current time and situation. Patient initially denied pain or discomfort. Compliant with nursing assessment questions. HS medication provided to patient. Patient initially declined medication. Speaking nonsensical sentences about how he wouldn't take his seizure medication because it causes him to have seizures. Then stated he wanted his Geodon because it causes him to have seizures. Then stated his seizure medication causes him to have "serotonin headache and serotonin upset stomach". While speaking with patient, another peer approached patient in an attempt to comfort him. Patient slammed his fists on the table and started to lift up his left hand to peer. Patient needed immediate re-direction and was escorted to his room for voluntary room time. Patient then started moving his legs and stomping his feet and yelling "the spiders". When asked what he was referring too, he stated "don't you see all the spiders on the floor trying to eat my feet". Patient eventually took HS medication. Due to agitation and restlessness, nurse administered Ativan PRN PO. Patient retired to his room but has been moving linens around his room, taking a shower, entering the hallway with a towel wrapped around him with his clothing on. Bizarre behaviors observed. Patient did report generalized pain around 2300 and requested PRN Ibuprofen. Patient then approached the nurses station demanding his Geodon. Patient redirected to his room where nurse educated patient that he received his Geodon with dinner. Patient has paper bags and linen laying all around room, briefs tied up scattered on the floor. Patient instructed that it is time to lay down in bed and get some rest. Patient complied for the moment.
[2019-09-19 07:55] VITALS: BP 140/53
--- NOTE | 2019-09-19 10:27 | NUR ---
0645 Report received from overnight shift, patient this am has some delusions of himself being a doctor. Patient ate breakfast and took medication cautiously, stating he does not need Keppra. Patient is redirectable and walks back and forth in halls. We will continue to monitor patient for safety.
--- NOTE | 2019-09-19 14:14 | NUR ---
Date of Admission: 09/12/19 Date of Activity Therapy Assessment:09/14/2019 Activity Goal:Two group per day Initial Goal:Pt to attend two recreation therapy groups per day until discharge to provide structure and managed leisure to aid in impulse control. Weekly progress towards goal:On track Group participation level:Moderate Behaviors observed:Talking off subject, hyperverbal, word salad, interuptiveto groups, at times. Plan: No change towards goal
[2019-09-19 21:16] VITALS: BP 112/50
--- NOTE | 2019-09-19 21:23 | NUR ---
Care assumed of patient at 1915: Patient alert and oriented x3, disoriented to current situation. Patient excited about going home on Saturday. Reminded patient that he would need to take all medications appropriately and remain calm prior to d/c. Patient restless and pacing from day room to his room several times already this shift. Patient denies pain or discomfort. Patient becoming easily agitated and irritable when speaking with staff and peers. No threatening or aggressive behaviors observed. Denies SI/HI/AH/VH. No s/s of hallucinations, paranoia or delusional behaviors observed. Patient interacting fairly well with other peers this evening. Patient ate 100% HS snack. Patient provided HS medication. Patient remembered the name of the medication provided but did inquire dosage provided. Education provided regarding dose and insulin provided. Patient was initially resistive to receiving insulin but accepted after thorough education provided. Patient appears less intrusive and easier to re-direct this shift.
[2019-09-20 09:31] VITALS: BP 134/64
[2019-09-20 09:35] VITALS: BP 134/64
--- NOTE | 2019-09-20 09:41 | NUR ---
0644 REPORT RECIEVED FROM OVERNIGHT SHIFT, PATIENT WAS UP AT NURSES STATION RAMBLING ABOUT CLOTHES. WE HAD TO REDIRECT PATIENT TO GO TO DAY ROOM BECAUSE WE WERE DOING REPORT. PATIENT RESPONDED TO REDIRECTION, ATE BREAKFAST TOOK MEDICATION WITHOUT INCIDENCE. PATIENT IS ANXIOUS ABOUT LEAVING TOMMOROW SO HE CAN SEE HIS OUTSIDE PSYCHIATRIST. PATIENT DELUSIONAL AT TIMES NO AGGRESSION, WE WILL CONTINUE TO MONITOR PATIENT FOR SAFETY.
[2019-09-20 20:00] VITALS: BP 124/58
--- NOTE | 2019-09-21 04:25 | NUR ---
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 HE WAS INITIALLY SITTING IN DAYROOM WITH PEERS. NO DISRUPTIVE OR INAPPROPRIATE BEHAVIORS NOTED. LATER WENT TO HIS ROOM AND SPENT ALOT OF TIME IN BATHROOM. SINGING LOUDLY AT TIMES, GROWLING AT TIMES. DISORGANIZED AND DIFFICULT TO DIRECT TO BED. PRN SEROQUEL AND ATIVAN ADMINISTERED ORDERED. SLEPT MOST OF THE REST OF NOC. DOES NOT RESPOND APPROPRIATELY TO OPEN ENDED QUESTIONS, BUT WILL ANSWER YES OR NO QUESTIONS. NO EVIDENCE OF PSYCHOSIS THIS SHIFT. SALUTES STAFF, SAYING "ONCE A BOYSCOUT, ALWAYS A BOYSCOUT." NO C/O. NO APPARENT DISTRESS.
[2019-09-21 08:00] VITALS: BP 123/71
--- NOTE | 2019-09-21 08:30 | NUR ---
PT IN DINNING ROOM. PT WANTING TO HELP OTHER RESIDENTS. PT LIKES TO SING AND RIAZ AT TIMES. PT DENIES ANY PAIN. PT UP AD FAHEEM. PT LUNGS CLEAR. TOLERATING DIET, AND TOOK MEDS WITHOUT ISSUES.
[2019-09-21 08:33] VITALS: BP 123/71
[2019-09-21] MEDS ORDERED: GEODON 80 MG CA80 MG PO (15:25)
[2019-09-21] MEDS ORDERED: KEPPRA 500 MG500 M1 PO (15:25)
[2019-09-21] MEDS ORDERED: PIOGLITAZONE15 MG PO (15:26)
[2019-09-21 15:30] VITALS: BP 123/71
--- NOTE | 2019-09-21 15:30 | NUR ---
SAVANAH d/c note In treatment team it was discussed that pt and his psych doctor are unwilling to change his outpatient psychiatrist are unwilling to change is antipsychotic medication. SAVANAH contacted pt's casenagi Mcadams and asked him when he will be able to pick pt up tomorrow. He said because pt is not better he is not allowed to transport. However, he can come after pt arrives home to check on him. He said he was unaware Dr. 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 SAVANAH and the [facility] doctor spoke with pt and provided him and update on Abbe being unable to provide transportation. The psych doctor attempted to talk with pt about changing his current antipsychotic meds, and pt denied that request. He also said he wanted to go home, and was willing to do so today if possible. SAVANAH contacted [facility] and provided the update that pt will be discharging this afternoon. He said that was fine and that he will figure out what next to do; he mentioned the best option possibly being NH placement for pt. He asked that pt's [facility] team ensure pt has his keys in his pocket. SAVANAH will send pt home via cab. No other needs for SW team to address at this time.
--- NOTE | 2019-09-21 16:35 | NUR ---
PT IS BEING DISCHARGED TO HOME. PT BELONGINGS RETURNED AND ITEMS FROM SECURITY. PT SIGNED D/C PAPERS. PT SINGING SOME SONGS DURING DISCHARGE. PT TRYING TO FIND 3RD RING, PT HAD ONLY 2 INVETORIED. CAB IS CALLED PER BIOMETRICS SPECIALIST DEBBIE.
--- NOTE | 2019-09-21 17:08 | NUR ---
PT LEFT VIA [facility]. PT ACCOMPANIED BY X2 STAFF MEMBERS AND VIA W/C.
--- NOTE | 2019-09-23 09:18 | D ---
[facility] [place] [address] DISCHARGE SUMMARY Name: ANT JASSO Room #: 521A-[facility] IN M.R.#: [id number] Admission: 09/12/19 Attend Phys: Massimo Arias DO Discharge: 09/21/19 Date of : 58 Report #: [id number] THIS REPORT FOR: //name// CC: Massimo Holley DATE OF SERVICE: 09/21/2019 INPATIENT PSYCHIATRIC DISCHARGE SUMMARY ATTENDING PHYSICIAN: Massimo Arias DO. SOLUTIONS ENGINEER AT THE TIME OF DISCHARGE: Abbe Duran MD DISCHARGE DIAGNOSES: Bipolar 1 disorder, most recent episode manic with psychotic features, modest improvement. Medical comorbidities at time of diagnosis is constipation, treated with senna, docusate daily, seizure disorder, continue with Keppra b.i.d., diabetes type 2. DISCHARGE PLAN: Will be discharging to his home in [facility]. The patient has poor insight to his current condition, but strongly advised to continue Keppra 500 mg twice per day for seizure disorder, he is taking Geodon 160 mg p.o. with dinner, pioglitazone 30 mg p.o. daily. The pioglitazone is for diabetes mellitus. Geodon is for his ivett. Of note, the patient refused to take other antimanic agents. Continue docusate 100 mg p.o. daily p.r.n. constipation, glipizide 5 mg p.o. daily with breakfast for hyperglycemia. Diabetic 1800-calorie diet. The patient should follow up with Roya Krause within 1 week, appointments per social service director. DISCHARGE LABORATORY DATA: CBC within normal limits except hemoglobin 13.4, hematocrit 39.5. Chemistry: Glucose is between 87 and 245. The patient had been admitted medically prior to his coming to the Psychiatry floor. HOSPITAL COURSE: During his psychiatric hospitalization, the patient remained disorganized at times, but was fully oriented, nonassaultive. I spoke to Dr. Néstor Cherry, his psychiatrist. Dr. Cherry felt strongly that the patient will only be responsive to Geodon. I defer someone in that opinion is that I think the patient at least should be on a mood stabilizer. The patient refused to take one. He did not meet criteria for involuntary admission; therefore, not all goals were met, particularly there was clarity of thought, but patient is not showing imminent harm to self or others or property. [address] [address] DISCHARGE SUMMARY Name: ANT JASSO Room #: 521A-[facility] IN ..#: [id number] Admission: 09/12/19 Attend Phys: Massimo Arias DO Discharge: 09/21/19 Date of : 58 Report #: [id number] CONDITION AT DISCHARGE: Stable, though psychopathology is evident. VITAL SIGNS: On the day of discharge, temperature 36.3, pulse 99, respirations 18, BP 123/71. MUSCULOSKELETAL: Normal gait and station. MENTAL STATUS EXAMINATION: This is a well-developed, thin male, appearing stated age. Attention fair to limited. Concentration fair. Speech is normal in rate, volume and tone. Thought process linear and goal directed. Thought content at times, focused on bizarre things, but does want to be discharged. No psychomotor agitation. No psychomotor retardation. The patient denied SI, HI. Denied hopelessness, helplessness. Denied auditory, visual, or tactile hallucinations. Memory not formally tested. Insight fair to limited. Judgment fair to limited. Fund of knowledge, no greater than average. PROGNOSIS: For this patient is guarded and will depend on his medication compliance. Physical Health keeping up with that. Hopefully, he will be able to get visited by his field case manager tomorrow. <ELECTRONICALLY SIGNED> By: Massimo Arias DO 09/23/19 0918 [id number] [id number] Massimo Arias DO /nt
== END 2019-09-21 17:00 | disposition home or self-care (01) | DRG 885 ==
LOC: SBH 16:46
PROVIDERS: Internal Medicine; ADMIT Psychiatry & Neurology Psychiatry
DX: F31.2 Bipolar disorder, current episode manic severe with psychotic features (principal); G40.909 Epilepsy, unspecified, not intractable, without status epilepticus; K59.00 Constipation, unspecified; M19.90 Unspecified osteoarthritis, unspecified site; E11.649 Type 2 diabetes mellitus with hypoglycemia without coma; Z88.8 Allergy status to other drugs, medicaments and biological substances; Z87.891 Personal history of nicotine dependence; Z79.899 Other long term (current) drug therapy
CPT/HCPCS: 10880